=== PATIENT | female | born 1960 | race Hispanic/Latino ===

== ENCOUNTER 2018-11-20 07:50 | Emergency (ER) | payer OTHER | END 2018-11-20 08:51 | disposition home or self-care (01) | LOC: BURERS 07:50 | DX: J11.1 Influenza due to unidentified influenza virus with other respiratory manifestations (principal); E03.9 Hypothyroidism, unspecified; Z79.899 Other long term (current) drug therapy | CPT/HCPCS: 87804; 99283 ==

== ENCOUNTER 2019-07-06 05:54 | Emergency (ER) | payer OTHER ==
[2019-07-06] MEDS ORDERED: Iopamidol 370 76% 100 ML VIAL IV ONE (05:55)
[2019-07-06] MEDS ORDERED: Ondansetron ODT 4 MG TAB ONE (06:05)
[2019-07-06 06:32] LABS: Bilirubin Negative (Negative); Blood, Urine Negative (Negative); Clarity Clear (Clear); Glucose, Urine (Dipstick) Negative (Negative); Leukocyte Negative (Negative); Nitrite Negative (Negative); Protein, Urine (Dipstick) Trace mg/dL (Neg-Trace)
[2019-07-06] MEDS ORDERED: Fentanyl 100 MCG/2 ML VIAL ONE (06:50)
[2019-07-06 07:08] LABS: ALT (SGPT) 49 U/L (8-55); AST (SGOT) 61 U/L (5-34); Alkaline Phosphatase 182 U/L (40-150); Anion Gap 14 mmol/L (10-20); BUN (Urea Nitrogen) 9 mg/dL (9.8-20.1); Bilirubin, Total 0.6 mg/dL (0.2-1.2); Calc. Creatinine Clearance 0 mL/min (70-130); Calcium 9.4 mg/dL (7.8-10.44); Carbon Dioxide 25 mmol/L (22-29); Chloride 103 mmol/L (98-107); Estimated GFR-MDRD 79; Globulin 2.9 g/dL (2.4-3.5); Glucose 122 mg/dL (70-105); Potassium 3.9 mmol/L (3.5-5.1); Protein, Total 6.9 g/dL (6.0-8.3); Sodium 138 mmol/L (136-145)
--- NOTE | 2019-07-06 08:04 | CT ---
CT ABDOMEN AND PELVIS WITH IV CONTRAST 07/06/2019 CLINICAL INFORMATION: Suprapubic pain. COMPARISON: None. Technique: Multiple contiguous axial CT images are obtained through the abdomen and pelvis with IV contrast. Cor onal reformatted images are provided. FINDINGS: Lower Chest: Mild dependent bibasilar atelectasis. Vessels: The abdominal aorta is normal in caliber without evidence of an aortic dissection. Abdomen: Portal vein:Patent Gallbladder: Within normal limits for CT imaging. Liver: within normal limits. Spleen: within normal limits. Pancreas: within normal limits. Adrenals: within normal limits. Kidneys: within normal limits. Bowel: Small hiatal hernia is visualized. There is colonic diverticuli seen throughout the colon. There is bowel wall thickening involving the sigmoid colon with adjacent pericolonic inflammatory changes present, and findings are suggestive of diverticulitis. No free intraperitoneal gas is seen, and there is no fluid collection seen to sugg est an adjacent abscess. Appendix: The appendix is visualized and normal in caliber. Peritoneum: Small amount of free fluid is seen in the pelvis. Mesentery and Retroperitoneum: No enlarged mesenteric or retroperitoneal lymph nodes. Abdominal Wall: A tiny fat-containing umbilical hernia is present. Pelvis: Reproductive Organs: No pelvic masses. Pelvis within normal limits. Bladder: Decompressed and not well evaluated. Bones: No suspicious lytic or sclerotic osseous lesions are identified. Degenerative changes are seen at the pubic symphysis with suggestion of prior injury involving the right pubic bone. IMPRESSION: 1. Diverticulitis involving the sigmoid colon. Follow-up is recommended after treatment to ensure res olution of the bowel wall thickening of the sigmoid colon. No free intraperitoneal gas or fluid collection is seen in the pelvis. 2. Small amount of free fluid. 3. Small hiatal hernia. 4. Small fat-containing umbilical hernia.
[2019-07-06] MEDS ORDERED: metroNIDAZOLE 250 MG TAB ONE (08:22)
[2019-07-06] MEDS ORDERED: Ciprofloxacin 500 MG TAB ONE (08:22)
== END 2019-07-06 08:38 | disposition home or self-care (01) ==
LOC: BURERS 05:54
DX: K57.32 Diverticulitis of large intestine without perforation or abscess without bleeding (principal); E03.9 Hypothyroidism, unspecified
CPT/HCPCS: 74177; 80053; 81003; 96361; 96374; J3010; Q0162; Q9967